=== PATIENT | female | born 1965 | race African-American/Black ===

== ENCOUNTER 2021-11-27 21:16 | Emergency (ER) | payer SELFPAY ==
[~2021-11-27] VITALS: Ht 160 cm; Wt 63.0 kg
[2021-11-27] MEDS ORDERED: KETOROLAC 30MG/ML VIAL IV STA (23:47)
[2021-11-28 00:13] LABS: CLARITY URINE CLEAR (CLEAR); COLOR URINE YELLOW (YELLOW); KETONES URINE NEGATIVE (NEGATIVE); LEUKOCYTE ESTERASE URINE NEGATIVE (NEGATIVE); NITRITE URINE POSITIVE (NEGATIVE); OCCULT BLOOD URINE NEGATIVE (NEGATIVE); PH URINE 6.5 (4.5-8.0); PROTEIN URINE NEGATIVE (NEGATIVE); SPECIFIC GRAVITY URINE 1.014 (1.005-1.030)
[2021-11-28 00:43] LABS: BASOPHILS % 0.3 % (0.0-2.0); EOSINOPHILS % 5.6 % (0.0-5.0); HEMATOCRIT. 35.3 % (36.0-48.0); MEAN CORPUSCULAR HEMOGLOBIN 29.2 pg (28.0-32.0); MEAN CORPUSCULAR VOLUME 85.7 fL (81.0-99.0); MEAN PLATELET VOLUME 8.3 fl (7.4-10.4); MONOCYTES % 6.7 % (2.0-8.0); NEUTROPHILS % 47.4 % (40.0-76.0); PLATELET 251 x1000/uL (130-400); RED BLOOD CELL COUNT 4.11 mill/uL (4.2-5.4)
[2021-11-28 00:49] LABS: CHLORIDE 106 mEq/L (98-107)
[2021-11-28] MEDS ORDERED: NITR-87 MT (02:36)
[2021-11-28] MEDS ORDERED: NITROFURANTOIN 100MG M/M CAPSULE PO ONE (02:45)
[2021-11-28 03:30] VITALS: BP 144/86
== END 2021-11-28 04:56 | disposition home or self-care (01) ==
LOC: ER 21:16
DX: N39.0 Urinary tract infection, site not specified (principal); M19.91 Primary osteoarthritis, unspecified site; F41.9 Anxiety disorder, unspecified; J45.909 Unspecified asthma, uncomplicated; I10 Essential (primary) hypertension
CPT/HCPCS: 36415; 80053; 81003; 85025; 99285